=== PATIENT | female | born 1990 | race Hispanic/Latino ===

== ENCOUNTER 2023-02-25 15:01 | Emergency (ER) | payer OTHER ==
[~2023-02-25] VITALS: Ht 165.1 cm; Wt 93.9 kg
[2023-02-25] MEDS ORDERED: METFORMIN HCL1000 M1 PO (15:24)
[2023-02-25] MEDS ORDERED: VENTOLIN HFA18 GM INH (15:24)
[2023-02-25 17:13] VITALS: BP 130/92
== END 2023-02-25 17:15 | disposition home or self-care (01) ==
LOC: ED 15:01
DX: O20.9 Hemorrhage in early pregnancy, unspecified (principal); Z3A.01 Less than 8 weeks gestation of pregnancy; O24.311 Unspecified pre-existing diabetes mellitus in pregnancy, first trimester; E11.9 Type 2 diabetes mellitus without complications; Z79.899 Other long term (current) drug therapy; Z79.84 Long term (current) use of oral hypoglycemic drugs
CPT/HCPCS: 36415; 80053; 84702; 85025; 86900; 86901; 99284